=== PATIENT | female | born 2000 | race Two or more races ===

== ENCOUNTER 2024-08-14 20:08 | Emergency (ER) | payer SELFPAY ==
[~2024-08-14] VITALS: Ht 160 cm; Wt 59.1 kg
[2024-08-14 21:09] LABS: Basophils # (auto) 0 10 ^3/uL (0-0.2); Basophils % (auto) 0.4 % (0.0-2.0); Eosinophils # (auto) 0 10 ^3/uL (0-0.8); Eosinophils % (auto) 0.3 % (0.0-7.0); Hematocrit 34.8 % (36.0-46.0); Hemoglobin 11.9 g/dL (12.2-16.2); Lymphocytes # (auto) 0.9 10 ^3/uL (0.4-5.4); Lymphocytes % (auto) 17.4 % (10.0-50.0); Mean Corpuscular Hemoglobin 29.3 pg (28.0-32.0); Mean Corpuscular Hgb Conc. 34.2 g/dL (32.0-36.0); Mean Corpuscular Volume 85.8 fL (80.0-100.0); Monocytes # (auto) 0.4 10 ^3/uL (0-1.3); Monocytes % (auto) 7.4 % (0.0-12.0); Neutrophils % (auto) 74.5 % (37.0-80.0); Nucleated Red Blood Cells % 0.1 %; Platelet Count (auto) 276 10^3/uL (140-450); Red Blood Cells 4.06 10^6/uL (4.0-5.20); Red Cell Distribution Width 15.8 % (11.8-14.3); White Blood Cell 5.4 10^3/uL (4.4-10.8)
[2024-08-14 21:23] LABS: Albumin 4.5 g/dL (3.2-4.8); Anion Gap 9 (5-15); Bilirubin, Total 0.6 mg/dL (0.2-1.0); Calcium 9.6 mg/dL (8.7-10.4); Carbon Dioxide 24 mmol/L (20-31); Chloride 106 mmol/L (98-107); Sodium 139 mmol/L (136-145); Total Protein 7.1 g/dL (5.7-8.2)
[2024-08-14 21:28] LABS: Alanine Aminotransferase 143 U/L (7-40); Alkaline Phosphatase 122 U/L (46-116); Aspartate Aminotransferase 204 U/L (13-40); BUN/Creatinine Ratio 10.4 (10.0-20.0); Blood Urea Nitrogen < 5 mg/dL (9-23); Glucose 112 mg/dL (74-106); Lipase 85 U/L (12-53); Potassium 3.1 mmol/L (3.5-5.1)
--- NOTE | 2024-08-14 21:31 | DVH ---
INDICATION: RUQ pain TECHNIQUE: Multiple real-time sonographic images were obtained of the right upper quadrant. COMPARISON: None FINDINGS: The liver is normal in size and echogenicity with no abnormality demonstrated. No intrahepatic biliar y ductal dilatation. S/p cholycystectomy. Common bile duct measures approximately 6 mm, within normal limits post cholecys tectomy. Right kidney measures 10.6 cm and is normal in size, contour and echogenicity. No hydronephrosis. Pancreas appears unremarkable. IMPRESSION: S/p cholycystectomy. No abnormality demonstrated.
[2024-08-14] MEDS: FAMOTIDINE 20 MG TAB PO ONE (21:41)
[2024-08-14] MEDS: ONDANSETRON ODT 4 MG TAB PO ONE (21:41)
[2024-08-14] MEDS: HYDROcodone-ACET 10/325MG TAB PO ONE (21:41)
--- NOTE | 2024-08-14 22:28 | ED.PDOC ---
History of Present Illness HPI Comments 24 y/o F, with a history of gastritis, is [id number] for c/o epigastric abdominal pain that radiates to her back, today. 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 She comments on prior history of similar pain, intermittently, in the past and having multiple episode of diarrhea, yesterday, only. Patient denies having any current nausea, vomiting, diarrhea, or other associated symptoms at this time. Chief Complaint: Abdominal Pain Time Seen by MD: 20:30 Reviewed Notes: Nurses Notes, Solvent Mixer Notes, Medications, Allergies Allergies: Coded Allergies: NO KNOWN ALLERGIES (Unverified , 08/14/24) Home Meds Active Scripts Gabapentin (Once-Daily) (Gabapentin) 300 Mg Tab, 300 MG PO Q6HP PRN for 11 Days, #44 TAB Prov:RASTA LOPEZ MD 08/14/24 Famotidine (PEPCID TABLET) 20 Mg Tb, 1 TAB PO BID PRN for 30 Days, #60 TAB 5 Refills Prov:RASTA LOPEZ MD 08/14/24 Information Source: Patient, Emergency Med Personnel Mode of Arrival: EMS Severity: Moderate Timing: Hours Duration: Since onset Prehospital treatment: 12 Lead EKG, Stone Rigger, Pain Meds (100ug fentanyl IV ), Other (4mg Zofran IV s/p 20G left hand ) Past Medical History Past Medical History (Other): gastritis Surgical History: Denies all surgeries 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 Hx Family History Family History: Unknown Social History Smoker: Non-Smoker Alcohol: Denies ETOH Use Drugs: Denies Drug Use Lives In: Home Gastrointestinal: reports: abdominal pain Musculoskeletal: reports: back pain All Other Systems: Reviewed and Negative (negative unless otherwise stated above or in HPI) Physical Exam General Appearance: Mild Distress, Normal HEENT: Normal ENT Inspection, Pharynx Normal, TMs Normal Neck: Full Range of Motion, Non-Tender, Normal, Normal Inspection Respiratory: Chest Non-Tender, Lungs Clear, No Accessory Muscle Use, No Respiratory Distress, Normal Breath Sounds Cardiovascular: No Edema, No JVD, No Murmur, No Gallop, Normal Peripheral Pulses, Regular Rate/Rhythm Breast Exam: Deferred Gastrointestinal: Epigastric (tenderness), No Organomegaly, No Pulsatile Mass, Normal Bowel Sounds, Soft, Tenderness (epigastric area ) Genitalia: Deferred Pelvic: Deferred Rectal: Deferred Extremities: No calf tenderness, Normal capillary refill, Normal inspection, Normal range of motion, Non-tender, No pedal edema Musculoskeletal : Apperance: Normal Neurologic: Alert, 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 Was a procedure done?: No Differential Dx Considerations may include: gastritis, gastroenteritis, GERD, PUD, viral syndrome, , UTI X-Ray, Labs, Meds, VS Vital Signs Date Time Temp Pulse Resp B/P (MAP) Pulse Ox O2 Delivery O2 Flow Rate FiO2 08/15/24 00:02 87 19 97 Room Air* 0 21 08/15/24 00:01 98.5 98 22 135/67 (89) 99 98.5 08/14/24 20:22 98.4 80 18 124/84 (97) 99 Lab Test 08/14/24 20:49 Range/Units White Blood Count 5.4 4.4-10.8 10^3/uL Red Blood Count 4.06 4.0-5.20 10^6/uL Hemoglobin 11.9 L 12.2-16.2 g/dL Hematocrit 34.8 L 36.0-46.0 % Mean Corpuscular Volume 85.8 80.0-100.0 fL Mean Corpuscular Hemoglobin 29.3 28.0-32.0 pg Mean Corpuscular Hemoglobin Concent 34.2 32.0-36.0 g/dL Red Cell Distribution Width 15.8 H 11.8-14.3 % Platelet Count 276 140-450 10^3/uL Mean Platelet Volume 8.1 6.9-10.8 fL Neutrophils (%) (Auto) 74.5 37.0-80.0 % Lymphocytes (%) (Auto) 17.4 10.0-50.0 % Monocytes (%) (Auto) 7.4 0.0-12.0 % Eosinophils (%) (Auto) 0.3 0.0-7.0 % Basophils (%) (Auto) 0.4 0.0-2.0 % Neutrophils # (Auto) 4.0 1.6-8.6 10 ^3/uL Lymphocytes # (Auto) 0.9 0.4-5.4 10 ^3/uL Monocytes # (Auto) 0.4 0-1.3 10 ^3/uL Eosinophils # (Auto) 0 0-0.8 10 ^3/uL Basophils # (Auto) 0 0-0.2 10 ^3/uL Nucleated Red Blood Cells 0.1 % Sodium Level 139 136-145 mmol/L Potassium Level 3.1 L 3.5-5.1 mmol/L Chloride Level 106 98-107 mmol/L Carbon Dioxide Level 24 20-31 mmol/L Anion Gap 9 5-15 Blood Urea Nitrogen < 5 L 9-23 mg/dL Creatinine 0.48 L 0.550-1.02 mg/dL Glomerular Filtration Rate Calc 137 >90 mL/min BUN/Creatinine Ratio 10.4 10.0-20.0 Serum Glucose 112 H 74-106 mg/dL Calcium Level 9.6 8.7-10.4 mg/dL Total Bilirubin 0.6 0.2-1.0 mg/dL Aspartate Amino Transferase (AST) 204 H 13-40 U/L Alanine Aminotransferase (ALT) 143 H 7-40 U/L Alkaline Phosphatase 122 H 46-116 U/L Total Protein 7.1 5.7-8.2 g/dL Albumin 4.5 3.2-4.8 g/dL Lipase 85 H 12-53 U/L Beta HCG, Quantitative 0.6 L 1.5-4.2 mIU/mL Current Medications Medications (Trade) Dose Ordered Sig/Jus Route Start Time Stop Time Status Last Admin Ondansetron HCl (Zofran Po) 8 mg ONCE ONCE PO 08/14/24 20:30 08/14/24 20:31 DC 08/14/24 21:41 Famotidine (Pepcid Tablet) 40 mg ONCE ONCE PO 08/14/24 20:30 08/14/24 20:31 DC 08/14/24 21:41 Acetaminophen/ Hydrocodone Bitart (Jordan 10/325MG Tab) 1 tab ONCE ONCE PO 08/14/24 20:30 08/14/24 20:31 DC 08/14/24 21:41 Potassium Chloride (Klor-Con Tablet) 20 meq ONCE ONCE PO 08/14/24 23:15 08/14/24 23:16 DC 08/14/24 23:59 [facility] [id number] [place] [id number] Ph: [phone] DIAGNOSTIC IMAGING Diagnostic Imaging Report : [id number] Signed PATIENT: NAN PAULINO ACCT: [id number] UNIT: [id number] : 2000 LOC: ER ROOM / BED: / AGE / SEX: 24 / F ADM STATUS: REG ER SERVICE 27 ORDERING PHYSICIAN: RASTA LOPEZ MD PROCEDURE(s): ABDL - ABDOMEN LIMITED REASON: RUQ pain ORDER NUMBER(s): [id number], ACCESSION NUMBER(s): [id number] INDICATION: RUQ pain TECHNIQUE: Multiple real-time sonographic images were obtained of the right upper quadrant. COMPARISON: None FINDINGS: The liver is normal in size and echogenicity with no abnormality demonstrated. No intrahepatic biliary ductal dilatation. S/p cholycystectomy. Common bile duct measures approximately 6 mm, within normal limits post cholecystectomy. Right kidney measures 10.6 cm and is normal in size, contour and echogenicity. No hydronephrosis. Pancreas appears unremarkable. IMPRESSION: S/p cholycystectomy. No abnormality demonstrated. ATED BY: SEAN GOULD MD DICTATED DATE/TIME: 08/14/242128 SIGNED BY: SEAN GOULD MD SIGNED DATE/TIME: 08/14/242128 CC: Time of 1ST Reevaluation: 21:00 Reevaluation 1ST: Unchanged Time of 2ND Reevaluation: 22:30 Reevaluation 2ND: Improved Patient Education/Counseling: Diagnosis, Treatment Family Education/Counseling: No Family Present Departure 1 Departure Time of Disposition: 22:30 Impression: Primary Impression: Epigastric pain Disposition: 01 HOME / SELF CARE / HOMELESS Condition: Stable e-Prescriptions Gabapentin (Once-Daily) (Gabapentin) 300 Mg Tab 300 MG PO Q6HP PRN for 11 Days, #44 TAB Prov: RASTA LOPEZ MD 08/14/24 Famotidine (PEPCID TABLET) 20 Mg Tb 1 TAB PO BID PRN for 30 Days, #60 TAB 5 Refills Prov: RASTA LOPEZ MD 08/14/24 Discharged With: Self Critical Care Note Critical Care Time?: No Stability Stability form required: No Heart Score Heart Score: Heart Score Response (Comments) Value History N/A 0 EKG N/A 0 Age N/A 0 Risk Factors N/A 0 Troponin N/A 0 Total 0 I personally scribed for RASTA LOPEZ MD ([email or web address]) on 08/14/24 at 22:28. Electronically submitted by Hugo Gotti [email or web address]). RASTA LOPEZ MD Aug 14, 2024 22:28
[2024-08-14] MEDS ORDERED: FAMO20TA10 PO (23:10)
[2024-08-14] MEDS ORDERED: GABA300T4 PO (23:11)
[2024-08-14] MEDS: POTASSIUM CHL 20 Meq TABLET PO ONE (23:59)
[2024-08-15 00:01] VITALS: BP 135/67; TEMP 98.5
[2024-08-15 00:02] VITALS: PULSE 87; RESP 19; O2SAT 97
== END 2024-08-15 00:07 | disposition home or self-care (01) ==
LOC: ER 20:08 → EDBD 20:08 → ER 08-15 00:07
DX: R10.13 Epigastric pain (principal); M54.9 Dorsalgia, unspecified; Z87.19 Personal history of other diseases of the digestive system
CPT/HCPCS: 36415; 76705; 80053; 83690; 84702; 85025; 99284; Q0162